=== PATIENT | male | born 1955 ===

== ENCOUNTER 2023-07-09 11:45 | Inpatient (IN) | payer OTHER ==
[~2023-07-09] VITALS: Ht 176.5 cm; Wt 57.2 kg
[~2023-07-09 11:45] MED LIST: AMBIEN10 MG PO; BUSPIRONE HCL10 MG PO; CALCIUM STOOL240 MG NGT; CALTRATE 600600 MG PO; COZAAR25 MG PO; Colace 100MG PO; FLAXSEED PO; FOSAMAX35 MG PO; NEURONTIN300 MG PO; OLANZAPINE10 MG PO; PERCOCET 5/3251 TAB PO; SERTRALINE HCL100 MG PO; TIZANIDINE HCL4 M1 PO; ZOLPIDEM TARTRA10 MG PO
[2023-07-09] MEDS ORDERED: SIMVASTATIN5 MG PO (15:06)
[2023-07-13] MEDS ORDERED: TAMSULOSIN HCL0.4 MG (11:53)
[2023-07-13] MEDS ORDERED: ZOLPIDEM TARTRA10 MG (11:53)
[2023-07-13] MEDS ORDERED: ROSUVASTATIN CA10 MG (11:53)
[2023-07-13] MEDS ORDERED: MIRTAZAPINE15 MG (11:53)
[2023-07-13] MEDS ORDERED: PANTOPRAZOLE SO40 MG (11:53)
[2023-07-13] MEDS ORDERED: OLANZAPINE10 MG (11:53)
[2023-07-13] MEDS ORDERED: FLUOXETINE HCL20 MG (11:53)
[2023-07-13] MEDS ORDERED: BUSPIRONE HCL10 MG (11:53)
[2023-07-13] MEDS ORDERED: PERCOCET 5-3251 EACH PO (16:11)
[2023-07-13] MEDS ORDERED: AMOX-CLAV 875-1 EACH PO (16:12)
[2023-07-13] MEDS ORDERED: MEDROLPACK PO (16:12)
[2023-07-13] MEDS ORDERED: NEURONTIN800 MG PO (16:13)
[2023-07-13] MEDS ORDERED: COLACE100 MG PO (16:14)
== END 2023-07-15 11:19 | disposition home health service (06) | DRG 455 ==
LOC: O/R 07-13 05:14 → SURH 07-13 10:45 → PED 07-13 19:06
PROVIDERS: ADMIT Orthopaedic Surgery Orthopaedic Surgery of the Spine; ATTEND Orthopaedic Surgery Orthopaedic Surgery of the Spine
PROC: 0SG0071 Fusion of Lumbar Vertebral Joint with Autologous Tissue Substitute, Posterior Approach, Posterior Column, Open Approach (ICD-10-PCS; 2023-07-13)
PROC: 0ST20ZZ Resection of Lumbar Vertebral Disc, Open Approach (ICD-10-PCS; 2023-07-13)
PROC: 07DR0ZZ Extraction of Iliac Bone Marrow, Open Approach (ICD-10-PCS; 2023-07-13)
PROC: 0QB30ZZ Excision of Left Pelvic Bone, Open Approach (ICD-10-PCS; 2023-07-13)
PROC: XRGB0R7 Fusion of Lumbar Vertebral Joint using Custom-Made Anatomically Designed Interbody Fusion Device, Open Approach, New Technology Group 7 (ICD-10-PCS; principal; 2023-07-13 10:45)
DX: M43.16 Spondylolisthesis, lumbar region (principal); M48.062 Spinal stenosis, lumbar region with neurogenic claudication

== ENCOUNTER 2024-10-31 12:26 | Inpatient (IN) | payer OTHER ==
[~2024-10-31] VITALS: Ht 30.5 cm; Wt 61.7 kg
[~2024-10-31 12:26] MED LIST changes: +AMOX-CLAV 875-1 EACH PO; +BUSPIRONE HCL10 MG; +COLACE100 MG PO; +FLUOXETINE HCL20 MG; +MEDROLPACK PO; +MIRTAZAPINE15 MG; +NEURONTIN800 MG PO; +OLANZAPINE10 MG; +PANTOPRAZOLE SO40 MG; +PERCOCET 5-3251 EACH PO; +ROSUVASTATIN CA10 MG; +SIMVASTATIN5 MG PO; +TAMSULOSIN HCL0.4 MG; +ZOLPIDEM TARTRA10 MG
[2024-11-10] MEDS ORDERED: PERCOCET 5-3251 EACH PO (09:27)
[2024-11-10] MEDS ORDERED: MEDROLPACK PO (09:27)
[2024-11-10] MEDS ORDERED: COLACE100 MG PO (09:28)
[2024-11-10] MEDS ORDERED: ZOFRAN8 MG PO (09:28)
[2024-11-10] MEDS ORDERED: 0.9 % SODIUM CHLORIDE 1,000 ML IV SCH (09:45)
[2024-11-10] MEDS ORDERED: PROMETHAZINE HCL 50 MG/ML AMPUL IM PRN (09:45)
[2024-11-10] MEDS ORDERED: ENALAPRILAT DIHYDRATE 1.25 MG/ML VIAL IV PRN (09:45)
[2024-11-10] MEDS ORDERED: HEMOSTATIC MATRIX WITH THROMBIN KIT TOP ONE (11:15)
[2024-11-10] MEDS ORDERED: METHYLPREDNISOLONE ACETATE 80 MG/ML VIAL IU ONE (11:15)
[2024-11-10] MEDS ORDERED: VANCOMYCIN HCL 1,000 MG VIAL IR ONE (11:15)
[2024-11-10] MEDS ORDERED: ISOPROPYL ALCOHOL 30 ML OUNCE TOP ONE (11:15)
[2024-11-10] MEDS ORDERED: VANCOMYCIN HCL 1,000 MG VIAL IV SCH ×3 (11:15→21:00)
[2024-11-10] MEDS ORDERED: METHYLPREDNISOLONE SOD SUCC 125 MG VIAL IV ONE ×2 (11:15)
[2024-11-10] MEDS ORDERED: CEFAZOLIN SODIUM 2,000 MG in 0.9 % SODIUM CHLORIDE 100 ML IV ONE (11:15)
[2024-11-10] MEDS ORDERED: MORPHINE SULFATE 4 MG/ML VIAL IV ONE ×2 (12:45→13:15)
[2024-11-10] MEDS ORDERED: MORPHINE SULFATE 4 MG/ML CARTRIDGE IV SCH (13:00)
[2024-11-10] MEDS ORDERED: DOCUSATE SODIUM 100MG CAP PO SCH (13:00)
[2024-11-10] MEDS ORDERED: FAMOtidine 20 MG TABLET PO SCH (17:00)
[2024-11-10] MEDS ORDERED: CEFAZOLIN SODIUM 1,000 MG in 0.9 % SODIUM CHLORIDE 50 ML IV SCH (17:00)
[2024-11-10] MEDS ORDERED: METHYLPREDNISOLONE SOD SUCC 125 MG VIAL IV SCH (17:00)
[2024-11-10 18:54] VITALS: BP 160/88; O2SAT 95
[2024-11-10] MEDS ORDERED: ACETAMINOPHEN 500 MG GEL..CAP PO SCH (20:00)
[2024-11-10 20:12] VITALS: O2SAT 100
[2024-11-11] VITALS: BP 136/76; O2SAT 99
[2024-11-11] MEDS ORDERED: SODIUM CHLORIDE 0.45 % 1,000 ML IV SCH
[2024-11-11 02:00] VITALS: O2SAT 100
[2024-11-11 05:59] VITALS: O2SAT 99
[2024-11-11] MEDS ORDERED: OxyCODONE HCL 5 MG TABLET (ROXICODONE) PO PRN (06:01)
[2024-11-11 08:00] VITALS: BP 138/75; O2SAT 999
[2024-11-11] MEDS ORDERED: TAMSULOSIN HCL 0.4 MG CAP PO SCH (09:00)
[2024-11-11 09:21] VITALS: O2SAT 97
== END 2024-11-11 14:18 | disposition home or self-care (01) | DRG 473 ==
LOC: O/R 11-10 05:17 → SURH 11-10 10:30
PROVIDERS: ADMIT Orthopaedic Surgery Orthopaedic Surgery of the Spine; ATTEND Orthopaedic Surgery Orthopaedic Surgery of the Spine
PROC: 0RT30ZZ Resection of Cervical Vertebral Disc, Open Approach (ICD-10-PCS; 2024-11-10)
PROC: 07DS0ZZ Extraction of Vertebral Bone Marrow, Open Approach (ICD-10-PCS; 2024-11-10)
PROC: 4A11X4G Monitoring of Peripheral Nervous Electrical Activity, Intraoperative, External Approach (ICD-10-PCS; 2024-11-10)
PROC: 0RG20A0 Fusion of 2 or more Cervical Vertebral Joints with Interbody Fusion Device, Anterior Approach, Anterior Column, Open Approach (ICD-10-PCS; principal; 2024-11-10 10:30)
DX: M50.21 Other cervical disc displacement, high cervical region (principal); Z98.1 Arthrodesis status; Z20.822 Contact with and (suspected) exposure to COVID-19